=== PATIENT | female | born 1970 | race Hispanic/Latino ===

== ENCOUNTER 2020-01-14 10:20 | Emergency (ER) | payer SELFPAY ==
[2020-01-14 11:12] LABS: RAPID GROUP A STREP NEGATIVE (NEGATIVE)
[2020-01-14] MEDS ORDERED: METHYLPREDNISOLONE SOD SUCC 125MG/2ML VIAL ONE (11:22)
[2020-01-14] MEDS ORDERED: ALBUTEROL INHALER 90MCG/INH IH SCH (12:00)
[2020-01-14] MEDS ORDERED: ALBUTEROL INHALER 90MCG/INH IH ONE (12:28)
== END 2020-01-14 12:45 | disposition home or self-care (01) ==
LOC: EDH 10:20
DX: T78.49XA Other allergy, initial encounter (principal); J45.909 Unspecified asthma, uncomplicated; E78.00 Pure hypercholesterolemia, unspecified; Z98.890 Other specified postprocedural states; X58.XXXA Exposure to other specified factors, initial encounter
CPT/HCPCS: 71045; 82948; 87804 ×2; 87880; 96374; 99284; J2930

== ENCOUNTER → 2020-09-28 | Outpatient (CLI) | payer OTHER | END | disposition home or self-care (01) | LOC: RAH 14:21 | PROVIDERS: ATTEND Physician Assistant | DX: Z13.6 Encounter for screening for cardiovascular disorders (principal) | CPT/HCPCS: 75571 ==

== ENCOUNTER 2020-11-22 18:23 | Inpatient (IN) | payer OTHER ==
[~2020-11-22] VITALS: Ht 149.9 cm; Wt 48.5 kg
[2020-11-22 19:03] LABS: BASOPHILS % (AUTO) 0.6 % (0.0-5.0); EOSINOPHILS % (AUTO) 2.3 % (0.0-8.0); HEMATOCRIT 38.2 % (36-48); LYMPHOCYTES % (AUTO) 31.7 % (21.0-51.0); MEAN CORPUSCULAR HEMOGLOBIN 30.4 pg (27.0-33.0); MEAN CORPUSCULAR HGB CONC 32.7 g/dL (32.0-36.0); MEAN CORPUSCULAR VOLUME 92.9 fL (79-99); MONOCYTES % (AUTO) 6.8 % (3.0-13.0); NEUTROPHILS % (AUTO) 58.3 % (40.0-77.0); PLATELET COUNT (AUTO) 280 K/uL (130-400); RED BLOOD CELL COUNT(AUTO) 4.11 MIL/uL (4.00-5.50); RED CELL DISTRIBUTION WIDTH 13.5 % (11.0-15.5); WHITE BLOOD COUNT (AUTO) 6.7 K/uL (4.8-10.8)
[2020-11-22 19:31] LABS: INR 1.05 (0.85-1.15); PROTHROMBIN TIME 11.4 SEC (9.6-11.6)
[2020-11-22 19:38] LABS: B-TYPE NATRIURETIC PEPTIDE 7 pg/mL (0-100)
[2020-11-22 19:53] LABS: ALBUMIN 3.9 g/dL (3.5-5.0); BILIRUBIN,TOTAL 0.2 mg/dL (0.2-1.0); CREATININE 0.8 mg/dL (0.5-1.5); POTASSIUM 3.5 mmol/L (3.5-5.1); TOTAL PROTEIN, SERUM 7.5 g/dL (6.0-8.3)
[2020-11-22] MEDS ORDERED: IOHEXOL-350 75 ML VIAL IV ONE (21:40)
[2020-11-22] MEDS ORDERED: LACTATED RINGERS 1000ML 1,000 ML IV SCH (21:45)
[2020-11-22] MEDS ORDERED: DIPHENHYDRAMINE HCL 25 MG CAPSULE PO PRN (21:45)
[2020-11-22] MEDS ORDERED: ACETAMINOPHEN 325 MG TAB PO PRN ×2 (21:45)
[2020-11-22] MEDS ORDERED: ONDANSETRON HCL 4 MG/2 ML VIAL IV PRN (21:45)
[2020-11-22] MEDS ORDERED: NITROGLYCERIN 0.4 MG SL TAB SL PRN (21:45)
[2020-11-22] MEDS ORDERED: MAG HYDROX/AL HYDROX/SIMETH ES 30 ML SUSP UDCUP PO PRN (21:45)
[2020-11-22] MEDS ORDERED: GUAIFENESIN-DM 200/20 MG 10 ML PO PRN (21:45)
[2020-11-22] MEDS ORDERED: DiphenhydrAMINE HCL 50 MG/ML VIAL IV PRN (21:45)
[2020-11-22] MEDS ORDERED: LACTULOSE 20 GM/30 ML UDCUP PO PRN (21:45)
[2020-11-22] MEDS: FAMOTIDINE/PF 20 MG/2 ML VIAL IV SCH (22:00)
[2020-11-22] MEDS ORDERED: LACTATED RINGERS 1000ML 1,000 ML IV ONE (22:51)
[2020-11-23] MEDS: ASPIRIN 81MG TAB.CHEW PO SCH ×2 (05:45→09:00)
[2020-11-23] MEDS ORDERED: FAMOTIDINE/PF 20 MG/2 ML VIAL IV ONE (08:48)
[2020-11-23] MEDS ORDERED: LACTATED RINGERS 1000ML 1,000 ML IV ONE (08:50)
[2020-11-23] MEDS: FAMOTIDINE/PF 20 MG/2 ML VIAL IV SCH ×2 (09:00→21:25)
[2020-11-23 10:48] LABS: APPEARANCE,URINE Clear (CLEAR); BILIRUBIN,URINE Negative (NEGATIVE); COLOR,URINE Yellow (YELLOW); GLUCOSE, URINE (UA) Negative (NEGATIVE); KETONES,URINE Negative (NEGATIVE); LEUKOCYTE ESTERASE ,URINE Negative (NEGATIVE); NITRATE,URINE Negative (NEGATIVE); OCCULT BLOOD,URINE Negative (NEGATIVE); PH,URINE 8.5 (5.0-8.0); PROTEIN,URINE Negative (NEGATIVE); UROBILINOGEN,URINE 0.2 mg/dL (0.2-1.0)
[2020-11-23 11:07] LABS: BACTERIA,URINE None Seen /HPF (None Seen); RBC,URINE 0-1 /HPF (0-1); SQUAMOUS EPITHELIAL CELL,UR 0-2 /HPF (0-2); WBC,URINE None Seen /HPF (0-1)
[2020-11-23 16:55] VITALS: BP 137/82
[2020-11-23] MEDS ORDERED: MONT10TA32 PO (18:53)
[2020-11-23] MEDS ORDERED: PRED20TA3 PO (18:53)
[2020-11-23] MEDS ORDERED: ATOR10 PO (18:53)
[2020-11-23 20:00] VITALS: BP 140/84
[2020-11-23] MEDS: ATORVASTATIN CALCIUM 20 MG TABLET PO SCH (21:00)
[2020-11-23] MEDS ORDERED: ATORVASTATIN CALCIUM 10 MG TABLET PO SCH (21:00)
[2020-11-24] VITALS: BP 138/82
[2020-11-24 04:00] VITALS: BP 124/78
[2020-11-24 05:56] LABS: BASOPHILS % (AUTO) 0.4 % (0.0-5.0); EOSINOPHILS % (AUTO) 2.8 % (0.0-8.0); HEMATOCRIT 35.6 % (36-48); LYMPHOCYTES % (AUTO) 36.5 % (21.0-51.0); MEAN CORPUSCULAR HEMOGLOBIN 31.1 pg (27.0-33.0); MEAN CORPUSCULAR VOLUME 91.5 fL (79-99); MONOCYTES % (AUTO) 6.7 % (3.0-13.0); NEUTROPHILS % (AUTO) 53.6 % (40.0-77.0); PLATELET COUNT (AUTO) 239 K/uL (130-400); RED BLOOD CELL COUNT(AUTO) 3.89 MIL/uL (4.00-5.50); RED CELL DISTRIBUTION WIDTH 13.5 % (11.0-15.5); WHITE BLOOD COUNT (AUTO) 4.9 K/uL (4.8-10.8)
[2020-11-24 06:06] LABS: ALBUMIN 3.5 g/dL (3.5-5.0); BILIRUBIN,TOTAL 0.4 mg/dL (0.2-1.0); CREATININE 0.8 mg/dL (0.5-1.5); MAGNESIUM 2.6 mg/dL (1.80-2.40); POTASSIUM 3.6 mmol/L (3.5-5.1)
[2020-11-24 08:39] VITALS: BP 128/85
[2020-11-24] MEDS: PREDNISONE 20 MG TABLET PO SCH (09:00)
[2020-11-24] MEDS: FAMOTIDINE/PF 20 MG/2 ML VIAL IV SCH ×2 (09:00→21:28)
[2020-11-24] MEDS: ASPIRIN 81MG TAB.CHEW PO SCH (09:00)
[2020-11-24] MEDS: MONTELUKAST SODIUM 10 MG TAB PO SCH (09:00)
[2020-11-24 11:33] VITALS: BP 120/88
[2020-11-24] MEDS ORDERED: ATOR20TA65 PO (14:13)
[2020-11-24] MEDS ORDERED: ASPI-1005 PO (14:13)
[2020-11-24 16:00] VITALS: BP 120/91
[2020-11-24 20:00] VITALS: BP 134/72
[2020-11-24] MEDS: ATORVASTATIN CALCIUM 20 MG TABLET PO SCH (21:27)
[2020-11-25] VITALS: BP 111/72
[2020-11-25 04:00] VITALS: BP 128/83
[2020-11-25 07:00] VITALS: BP 113/77
[2020-11-25 11:30] VITALS: BP 115/82
[2020-11-25] MEDS: MONTELUKAST SODIUM 10 MG TAB PO SCH (12:13)
[2020-11-25] MEDS: FAMOTIDINE/PF 20 MG/2 ML VIAL IV SCH (12:13)
[2020-11-25] MEDS: ASPIRIN 81MG TAB.CHEW PO SCH (12:14)
[2020-11-25] MEDS: PREDNISONE 20 MG TABLET PO SCH (12:14)
[2020-11-25 16:00] VITALS: BP 114/74
[2020-11-25 19:35] VITALS: BP 132/91
== END 2020-11-25 19:50 | disposition home or self-care (01) | DRG 948 ==
LOC: EDH 18:23 → EDHIP 18:24 → 3DH 11-23 17:11
PROVIDERS: ADMIT Family Medicine; ATTEND Family Medicine
DX: R53.1 Weakness (principal); I10 Essential (primary) hypertension; E78.5 Hyperlipidemia, unspecified; F32.9 Major depressive disorder, single episode, unspecified; J45.909 Unspecified asthma, uncomplicated; R13.10 Dysphagia, unspecified; E78.00 Pure hypercholesterolemia, unspecified; G51.0 Bell's palsy; F44.9 Dissociative and conversion disorder, unspecified; I69.328 Other speech and language deficits following cerebral infarction; I69.322 Dysarthria following cerebral infarction
CPT/HCPCS: 36415; 70450; 70496; 70498; 70551; 71045; 74230; 80053; 81001; 82550; 82948; 83735; 83880; 84443; 84484; 84702; 85025; 85610; 85730; 87426; 92610; 92611; 93005; 93306; 93356; G0378; J3490; J7120; Q9967; U0003

== ENCOUNTER 2022-05-25 19:59 | Emergency (ER) | payer OTHER ==
[~2022-05-25] VITALS: Ht 160 cm; Wt 40.8 kg
[~2022-05-25 19:59] MED LIST: ASPI-1005 PO; ATOR10 PO; ATOR20TA65 PO; MONT-39 PO; PRED20TA3 PO
[2022-05-25 22:00] VITALS: BP 143/67
[2022-05-25] MEDS ORDERED: AUGM4005L PEG (22:16)
== END 2022-05-25 22:53 | disposition home or self-care (01) ==
LOC: EDH 19:59
DX: J69.0 Pneumonitis due to inhalation of food and vomit (principal); F32.A Depression, unspecified; Z79.52 Long term (current) use of systemic steroids; Z79.82 Long term (current) use of aspirin; Z79.899 Other long term (current) drug therapy
CPT/HCPCS: 71045